=== PATIENT | male | born 2000 | race Caucasian/White ===

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

== ENCOUNTER 2025-02-01 17:56 | Emergency (ER) | payer BC ==
[~2025-02-01] VITALS: Ht 182.8 cm; Wt 90.7 kg
[~2025-02-01 17:56] MED LIST changes: +ZITHROMAX250 MG PO; +ZOFRAN ODT4 MG SL
[2025-02-01] MEDS ORDERED: IBUPROFEN 600 MG TAB PO ONE (19:15)
[2025-02-01] MEDS ORDERED: ACETAMINOPHEN 325 MG TAB PO ONE (19:15)
[2025-02-01 19:23] LABS: BASO # 0.0 10*3/uL (0.0-0.1); BASO % 0.2 % (0.0-1.0); EOS # 0.1 10*3/uL (0.0-0.4); EOS % 0.8 % (1.0-4.0); MEAN CELL VOLUME 88.0 fl (80.0-94.0); MEAN CORPUSCULAR HGB 28.8 pg (27.0-31.0); MEAN PLATELET VOLUME 9.8 fl (9.6-12.3); MONO # 1.0 10*3/uL (0.1-1.0); MONO % 10.0 % (3.0-9.0); NEUT # 7.8 10*3/uL (2.3-7.9); NEUT % 75.1 % (47.0-73.0); NUCLEATED RED BLOOD CELL 0.0 % (0.0-0.0); NUCLEATED RED BLOOD CELL 0.0 10*3/uL (0.0-0.0); PLATELET COUNT AUTOMATED 224 10*3/uL (130-400); RED CELL DISTRI WIDTH 12.3 % (0-14.5)
[2025-02-01 19:40] LABS: BUN 12 mg/dl (9-23)
[2025-02-01] MEDS ORDERED: ZITHROMAX250 MG PO (20:19)
[2025-02-01] MEDS ORDERED: AZITHROMYCIN 250 MG TAB PO ONE (20:20)
== END 2025-02-01 20:26 | disposition home or self-care (01) ==
LOC: ED 17:56
PROVIDERS: Nurse Practitioner Family
DX: J98.4 Other disorders of lung (principal); Z20.822 Contact with and (suspected) exposure to COVID-19; Z79.899 Other long term (current) drug therapy